=== PATIENT | female | born 1955 | race Caucasian/White ===

== ENCOUNTER 2020-06-07 00:09 | Emergency (ER) | payer OTHER ==
[~2020-06-07] VITALS: Ht 147.3 cm; Wt 87.1 kg
[2020-06-07] MEDS ORDERED: LORCET 5-325 M1 EACH PO (02:14)
[2020-06-07] MEDS ORDERED: FLEXERIL PO (02:14)
[2020-06-07 02:47] VITALS: BP 155/87
== END 2020-06-07 02:47 | disposition home or self-care (01) ==
LOC: M.ERS 00:09
DX: S42.212A Unspecified displaced fracture of surgical neck of left humerus, initial encounter for closed fracture (principal); S01.511A Laceration without foreign body of lip, initial encounter; I10 Essential (primary) hypertension; W18.39XA Other fall on same level, initial encounter; Y93.89 Activity, other specified; Y92.89 Other specified places as the place of occurrence of the external cause; Y99.8 Other external cause status